=== PATIENT | male | born 1975 ===

== ENCOUNTER 2016-12-31 10:48 | Emergency (ER) | payer OTHER ==
[2016-12-31 11:08] VITALS: RESP 18; TEMP 99.8; O2SAT 98
[2016-12-31] MEDS ORDERED: Naproxen 550 mg Tab PO STA (11:58)
[2016-12-31] MEDS ORDERED: Naproxen 550 mg Tab PO ONE (12:08)
--- NOTE | 2016-12-31 12:51 | C.PDOC ---
History Of Present Illness Pt c/o rectal pain. Time Seen by Provider: 12/31/16 11:41 Chief Complaint (Nursing): GI Problem History Per: Patient Onset/Duration Of Symptoms: Days (1) Current Symptoms Are (Timing): Still Present Severity: Moderate Location Of Pain/Discomfort: Other (Rectum) Quality Of Discomfort: "Pain" Associated Symptoms: Constipation Last Bowel Movement: Today Additional History Per: Prior Records Past Medical History Reviewed: Historical Data, Nursing Documentation, Vital Signs Vital Signs: Last Vital Signs Temp 99.8 F H 12/31/16 11:05 Pulse 97 H 12/31/16 11:05 Resp 18 12/31/16 11:05 BP 164/95 H 12/31/16 11:05 Pulse Ox 98 12/31/16 11:05 - Medical History PMH: No Chronic Diseases Surgical History: No Surg Hx Family History: States: Unknown Family Hx - Social History Hx Alcohol Use: Yes Hx Substance Use: No - Immunization History Hx Tetanus Toxoid Vaccination: No Hx Influenza Vaccination: No Hx Pneumococcal Vaccination: No Review Of Systems Except As Marked, All Systems Reviewed And Found Negative. Constitutional: Negative for: Fever, Weakness Cardiovascular: Negative for: Chest Pain Respiratory: Negative for: Shortness of Breath Gastrointestinal: Positive for: Constipation, Rectal Pain. Negative for: Vomiting, Abdominal Pain, Diarrhea, Melena, Hematochezia, Hematemesis Genitourinary: Negative for: Dysuria Musculoskeletal: Negative for: Neck Pain, Back Pain Skin: Negative for: Rash Neurological: Negative for: Weakness, Numbness, Seizures, Altered Mental Status Physical Exam - Physical Exam Appears: Non-toxic, No Acute Distress Skin: Normal Color, Warm, Dry Head: Atraumatic, Normacephalic Eye(s): bilateral: Normal Inspection, PERRL, EOMI Neck: Normal ROM, Supple Cardiovascular: Rhythm Regular Respiratory: Normal Breath Sounds, No Accessory Muscle Use Gastrointestinal/Abdominal: Soft, No Tenderness Rectal: Rectal Tone (wnl), Hemorrhoids (?), Tenderness (painful rectal exam), Other (Skin tags. No stool in rectal vault.) Back: No CVA Tenderness Extremity: Normal ROM Neurological/Psych: Oriented x3, Normal Motor, Normal Sensation ED Course And Treatment O2 Sat by Pulse Oximetry: 98 Pulse Ox Interpretation: Normal Reassessment Condition: Improved Disposition Counseled Patient/Family Regarding: Diagnosis, Need For Followup, Rx Given - Disposition Referrals: [facility] at [facility] [Outside] Disposition: HOME/ ROUTINE Disposition Time: 12:51 Condition: STABLE Additional Instructions: Follow up in the clinic for further evaluation and treatment. Return to the ER if you develop fever, abdominal pain, worsening of symptoms or if you have any other concerns. Prescriptions: Docusate [Colace] 100 mg PO BID #30 cap Phenylephrine [Keyla-Med NF] 1 supp RC QID PRN #30 sup PRN Reason: Hemorrhoids Instructions: Rectal Pain (ED) Forms: [employer] ([place]) Print Language: DIVEHI - Clinical Impression Clinical Impression: Rectal pain
[2016-12-31 12:58] VITALS: BP 128/78; PULSE 85
== END 2016-12-31 12:58 | disposition home or self-care (01) ==
LOC: C.ER 10:48
DX: K62.89 Other specified diseases of anus and rectum (principal)

== ENCOUNTER 2017-01-03 10:47 | Inpatient (IN) | payer OTHER, SELFPAY ==
[2017-01-03 11:02] VITALS: BMI 41.6
[2017-01-03 13:04] LABS: BASO # 0.1 K/uL (0.0-0.2); BASO % 0.7 % (0.0-2.0); EOS # 0.1 K/uL (0.0-0.7); EOS % 1.3 % (0.0-4.0); HEMATOCRIT 46.5 % (35.0-51.0); LYMPH # 1.6 K/uL (1.0-4.3); LYMPH % 21.4 % (20.0-40.0); MEAN CELL VOLUME 92.2 fL (80.0-94.0); MEAN CORPUSCULAR HEMOGLOBIN 31.4 pg (27.0-31.0); MONO # 0.8 K/uL (0.0-0.8); MONO % 10.6 % (0.0-10.0); RED CELL DISTRIBUTION WIDTH 12.4 % (11.5-14.5); WHITE BLOOD COUNT 7.6 K/uL (4.8-10.8)
[2017-01-03 13:16] LABS: CHLORIDE 96 mmol/L (98-107); POTASSIUM 4.7 mmol/L (3.6-5.2); SODIUM 136 mmol/L (132-148)
[2017-01-03 13:18] LABS: AST/SGOT 177 U/L (17-59); CARBON DIOXIDE 26 mmol/L (22-30); GFR AFRICAN-AMERICAN > 60
[2017-01-03 13:19] LABS: ALB/GLOB RATIO 0.9 (1.0-2.1); ALKALINE PHOSPHATASE 113 U/L (38-126); ALT/SGPT 183 U/L (21-72); BLOOD UREA NITROGEN 11 mg/dL (9-20); CALCIUM 9.2 mg/dl (8.6-10.4); GLUCOSE,RANDOM 252 mg/dL (75-110); TOTAL PROTEIN 8.1 g/dL (6.3-8.3)
[2017-01-03] MEDS ORDERED: Piperacillin/Tazobact 3.375 gm 100 ML IVPB STA (14:31)
[2017-01-03] MEDS ORDERED: Sodium Chloride 0.9% 1,000 ML IV ONE (14:34)
--- NOTE | 2017-01-03 14:48 | RAD ---
HISTORY: pre-op COMPARISON: No prior. FINDINGS: LUNGS: No active pulmonary disease. PLEURA: No significant pleural effusion identified, no pneumothorax apparent. CARDIOVASCULAR: Normal. OSSEOUS STRUCTURES: No significant abnormalities. VISUALIZED UPPER ABDOMEN: Normal. OTHER FINDINGS: None. IMPRESSION: No active disease.
[2017-01-03 15:05] LABS: INR 1.2
[2017-01-03] MEDS ORDERED: Iodixanol 320 MG/ML 100 ML BOTTLE IV ONE (15:11)
[2017-01-03] MEDS ORDERED: Sodium Chloride 0.9% 1,000 ML ONE (15:11)
--- NOTE | 2017-01-03 15:22 | CP.PCM.CON ---
History of Present Illness - History of Present Illness History of Present Illness: SURGERY CONSULT NOTE FOR DR. NAVARRETE 41M presents with pain in the buttock that began 5 days ago as per patient. Patient states he felt a bump that has gotten much bigger and have been draining purulent material. Patient denies fevers, chills, nausea, vomiting, change in bowel function. He has never had this before PMH: denies PSH: denies Social: denies tobacco use, admits to alcohol uses, denies illicit drugs Allergies: denies Past Patient History - Infectious Disease Hx of Infectious Diseases: None - Past Social History Smoking Status: Never Smoked - PSYCHIATRIC Hx Substance Use: No - SURGICAL HISTORY Hx Surgeries: No - ANESTHESIA Hx Anesthesia: No Meds Allergies/Adverse Reactions: Allergies Allergy/AdvReac Type Severity Reaction Status Date / Time No Known Allergies Allergy Verified 01/03/17 11:00 - Medications Medications: Current Medications Sodium Chloride (Sodium Chloride 0.9%) 1,000 mls @ 250 mls/hr IV .Q4H ONE Stop: 01/03/17 18:33 Last Admin: 01/03/17 15:09 Dose: 250 mls/hr Physical Exam - Constitutional Appears: Non-toxic, No Acute Distress, Other (uncomfortable) - Head Exam Head Exam: ATRAUMATIC - Eye Exam Eye Exam: EOMI, PERRL - ENT Exam ENT Exam: Mucous Membranes Moist - Respiratory Exam Respiratory Exam: Clear to Auscultation Bilateral, NORMAL BREATHING PATTERN - Cardiovascular Exam Cardiovascular Exam: REGULAR RHYTHM, +S1, +S2 - GI/Abdominal Exam GI & Abdominal Exam: Soft. absent: Distended, Firm, Guarding, Rebound, Rigid, Tenderness - Rectal Exam Rectal Exam: Hemorrhoids Additional comments: left side perianal abscess, draining some purulent material 10cm region of tenderness around the drainage site. - Extremities Exam Extremities exam: Negative for: pedal edema, tenderness - Neurological Exam Neurological exam: Alert, Oriented x3 - Psychiatric Exam Psychiatric exam: Normal Affect, Normal Mood - Skin Skin Exam: Dry, Intact, Normal Color, Warm Results - Vital Signs Recent Vital Signs: Last Vital Signs Temp 97.8 F 01/03/17 11:02 Pulse 86 01/03/17 11:02 Resp 18 01/03/17 11:02 BP 138/106 H 01/03/17 11:02 Pulse Ox 98 01/03/17 11:02 - Labs Result Diagrams: 01/03/17 12:58 01/03/17 12:58 Labs: Laboratory Results - last 24 hr 01/03/17 01/03/17 01/03/17 12:58 12:58 14:44 WBC 7.6 RBC 5.04 Hgb 15.8 Hct 46.5 MCV 92.2 MCH 31.4 H MCHC 34.0 RDW 12.4 Plt Count 249 MPV 8.0 Neut % (Auto) 66.0 Lymph % (Auto) 21.4 [place] % (Auto) 10.6 H Eos % (Auto) 1.3 Baso % (Auto) 0.7 Neut # 5.0 Lymph # 1.6 [place] # 0.8 Eos # 0.1 Baso # 0.1 PT 13.5 H INR 1.2 APTT 24 Sodium 136 Potassium 4.7 Chloride 96 L Carbon Dioxide 26 Anion Gap 19 BUN 11 Creatinine 0.5 L Est GFR ( Amer) > 60 Est GFR (Non-Af Amer) > 60 Random Glucose 252 H Calcium 9.2 Total Bilirubin 1.0 AST 177 H ALT 183 H Alkaline Phosphatase 113 Total Protein 8.1 Albumin 3.9 Globulin 4.2 H Albumin/Globulin Ratio 0.9 L Assessment & Plan - Assessment and Plan (Free Text) Assessment: 41M with perianal abscess Plan: - NPO, IVF, Antibiotics - follow up CT scan - Patient needs incision and drainage of abscess Samuel Mcqueen, PGY2
[2017-01-03] MEDS ORDERED: Piperacillin/Tazobact 3.375 gm 100 ML IVPB ONE (15:38)
--- NOTE | 2017-01-03 15:43 | C.PDOC ---
History Of Present Illness 41 yr old male presents to the ER for evaluation of swelling in the anal area for the past 1-2 months. Patient reports of pain with bowel movement but drainage from the area. Patient reports of trauma to the area, however can not elaborate. Also states he has not sought out any medical help until now. Patient denies fever, chills, nausea, vomiting, abdominal pain, diarrhea, blood with BM, back pain, weakness or numbness. Time Seen by Provider: 01/03/17 11:11 Chief Complaint (Nursing): Abnormal Skin Integrity History Per: Patient History/Exam Limitations: no limitations Onset/Duration Of Symptoms: Persistent (1-2 months) Past Medical History Reviewed: Historical Data, Nursing Documentation, Vital Signs Vital Signs: Last Vital Signs Temp 98.6 F 01/03/17 16:00 Pulse 74 01/03/17 16:00 Resp 18 01/03/17 16:00 BP 155/100 H 01/03/17 16:00 Pulse Ox 98 01/03/17 16:43 Family History: States: No Known Family Hx - Social History Hx Alcohol Use: Yes Hx Substance Use: No - Immunization History Hx Tetanus Toxoid Vaccination: No Hx Influenza Vaccination: No Hx Pneumococcal Vaccination: No Review Of Systems Except As Marked, All Systems Reviewed And Found Negative. Constitutional: Negative for: Fever, Chills Gastrointestinal: Positive for: Other ((+) Area of swelling in the anal area.). Negative for: Nausea, Vomiting, Abdominal Pain, Diarrhea Neurological: Negative for: Weakness, Numbness Physical Exam - Physical Exam Appears: Non-toxic, No Acute Distress Skin: Warm, Dry, No Rash, Other ((+) Anus - At the 3 oclock position, proximity 2cm in diameter area of fluctuance/induration. Very tender to touch. No dischagre noted.) Head: Atraumatic, Normacephalic Eye(s): bilateral: Normal Inspection, PERRL, EOMI Oral Mucosa: Moist Chest: Symmetrical, No Tenderness Cardiovascular: Rhythm Regular, No Murmur Respiratory: Normal Breath Sounds, No Rales, No Rhonchi, No Stridor, No Wheezing Extremity: Normal ROM, No Swelling Neurological/Psych: Oriented x3, Normal Speech, Normal Motor ED Course And Treatment - Laboratory Results Result Diagrams: 01/03/17 12:58 01/03/17 12:58 O2 Sat by Pulse Oximetry: 98 (RA ) Pulse Ox Interpretation: Normal - Radiology CXR: Viewed By Me, Read By Radiologist CXR Interpretation: Yes: No Acute Disease - CT Scan/US CT - Abd & Pelvis Other Rad Studies (CT/US): Read By Radiologist, Radiology Report Reviewed CT/US Interpretation: PROCEDURE: CT Abdomen and Pelvis with contrast. HISTORY : evaluation of rectal/anal abscess. COMPARISON: None. TECHNIQUE: Contrast dose: 100 mL Visipaque 320. Radiation dose: Total exam DLP = 897.83 mGy-cm. This CT exam was performed using one or more of the following dose reduction techniques: Automated exposure control, adjustment of the mA and/or kV according to patient size, and/or use of iterative reconstruction technique. FINDINGS: LOWER THORAX: Minimal linear scar/ atelectasis in both lower lobes. LIVER: Normal size and contour. Diffuse fatty infiltration. No focal mass. No biliary dilatation. GALLBLADDER AND BILE DUCTS: Unremarkable. PANCREAS: Unremarkable. No gross lesion or ductal dilatation. SPLEEN: Unremarkable. ADRENALS: Unremarkable. No mass. KIDNEYS AND URETERS: Unremarkable. No hydronephrosis. No solid mass. VASCULATURE: Unremarkable. No aortic aneurysm. BOWEL: Unremarkable. No obstruction. No gross mural thickening. APPENDIX: Normal appendix. PERITONEUM: Unremarkable. No free fluid. No free air. LYMPH NODES: Unremarkable. No enlarged lymph nodes. BLADDER: Unremarkable. REPRODUCTIVE: Normal prostate. BONES: No acute fracture. OTHER FINDINGS: Posterior to the anus, extending along the left perineum, there is cutaneous thickening with increased attenuation of the subcutaneous fat, consistent with cellulitis. . There is a small irregularly-shaped low-density collection, approximately 0.8 x 2.1 x 2.3 cm. There is faint peripheral enhancement consistent with a small abscess. IMPRESSION: 2.3 cm perianal abscess with adjacent cellulitis, extending posteriorly from the anus along the left superior perineum. Medical Decision Making Medical Decision Making: PLAN: * CT - Abdomen & Pelvis * CXR * EKG * CBC * CMP * Zoysn IVPB * Sodium Chloride IV Disposition - Disposition Disposition: HOSPITALIZED Disposition Time: 15:30 Condition: STABLE - Clinical Impression Clinical Impression: Perirectal abscess - Scribe Statement The provider has reviewed the documentation as recorded by the Nisreen Puckett Provider Attestation: All medical record entries made by the Scribe were at my direction and personally dictated by me. I have reviewed the chart and agree that the record accurately reflects my personal performance of the history, physical exam, medical decision making, and the department course for this patient. I have also personally directed, reviewed, and agree with the discharge instructions and disposition.
--- NOTE | 2017-01-03 15:45 | CP.PCM.HP ---
History of Present Illness - History of Present Illness History of Present Illness: SURGERY CONSULT NOTE FOR DR. NAVARRETE 41M presents with pain in the buttock that began 5 days ago as per patient. Patient states he felt a bump that has gotten much bigger and have been draining purulent material. Patient denies fevers, chills, nausea, vomiting, change in bowel function. He has never had this before PMH: denies PSH: denies Social: denies tobacco use, admits to alcohol uses, denies illicit drugs Allergies: denies Present on Admission - Present on Admission Any Indicators Present on Admission: No Past Patient History - Infectious Disease Hx of Infectious Diseases: None - Past Social History Smoking Status: Never Smoked - PSYCHIATRIC Hx Substance Use: No - SURGICAL HISTORY Hx Surgeries: No - ANESTHESIA Hx Anesthesia: No Meds Allergies/Adverse Reactions: Allergies Allergy/AdvReac Type Severity Reaction Status Date / Time No Known Allergies Allergy Verified 01/03/17 11:00 Physical Exam - Constitutional Appears: Non-toxic, No Acute Distress - Head Exam Head Exam: ATRAUMATIC - Eye Exam Eye Exam: EOMI, PERRL - ENT Exam ENT Exam: Mucous Membranes Moist - Respiratory Exam Respiratory Exam: Clear to Auscultation Bilateral, NORMAL BREATHING PATTERN - Cardiovascular Exam Cardiovascular Exam: REGULAR RHYTHM, +S1, +S2 - GI/Abdominal Exam GI & Abdominal Exam: Soft. absent: Distended, Firm, Guarding, Rebound, Rigid, Tenderness - Rectal Exam Rectal Exam: Hemorrhoids Additional comments: left side perianal abscess, draining some purulent material 10cm region of tenderness around the drainage site. - Extremities Exam Extremities exam: Negative for: pedal edema, tenderness - Neurological Exam Neurological exam: Alert, Oriented x3 - Psychiatric Exam Psychiatric exam: Normal Affect, Normal Mood - Skin Skin Exam: Dry, Intact, Normal Color, Warm Results - Vital Signs Recent Vital Signs: Last Vital Signs Temp 97.8 F 01/03/17 11:02 Pulse 86 01/03/17 11:02 Resp 18 01/03/17 11:02 BP 138/106 H 01/03/17 11:02 Pulse Ox 98 01/03/17 15:43 - Labs Result Diagrams: 01/03/17 12:58 01/03/17 12:58 Labs: Laboratory Results - last 24 hr 01/03/17 01/03/17 01/03/17 12:58 12:58 14:44 WBC 7.6 RBC 5.04 Hgb 15.8 Hct 46.5 MCV 92.2 MCH 31.4 H MCHC 34.0 RDW 12.4 Plt Count 249 MPV 8.0 Neut % (Auto) 66.0 Lymph % (Auto) 21.4 [place] % (Auto) 10.6 H Eos % (Auto) 1.3 Baso % (Auto) 0.7 Neut # 5.0 Lymph # 1.6 [place] # 0.8 Eos # 0.1 Baso # 0.1 PT 13.5 H INR 1.2 APTT 24 Sodium 136 Potassium 4.7 Chloride 96 L Carbon Dioxide 26 Anion Gap 19 BUN 11 Creatinine 0.5 L Est GFR ( Amer) > 60 Est GFR (Non-Af Amer) > 60 Random Glucose 252 H Calcium 9.2 Total Bilirubin 1.0 AST 177 H ALT 183 H Alkaline Phosphatase 113 Total Protein 8.1 Albumin 3.9 Globulin 4.2 H Albumin/Globulin Ratio 0.9 L Blood Type 01/03/17 14:44 WBC RBC Hgb Hct MCV MCH MCHC RDW Plt Count MPV Neut % (Auto) Lymph % (Auto) [place] % (Auto) Eos % (Auto) Baso % (Auto) Neut # Lymph # [place] # Eos # Baso # PT INR APTT Sodium Potassium Chloride Carbon Dioxide Anion Gap BUN Creatinine Est GFR ( Amer) Est GFR (Non-Af Amer) Random Glucose Calcium Total Bilirubin AST ALT Alkaline Phosphatase Total Protein Albumin Globulin Albumin/Globulin Ratio Blood Type A POSITIVE Assessment & Plan - Assessment and Plan (Free Text) Assessment: 41M with josefina-rectal abscess Plan: - NPO, IVF, Antibiotics - f/u CT results - I&D tonight in the OR Discussed with Dr. Emmy Mcqueen, PGY2
--- NOTE | 2017-01-03 15:57 | CT ---
PROCEDURE: CT Abdomen and Pelvis with contrast HISTORY: evaluation of rectal/anal abscess COMPARISON: None. TECHNIQUE: Contrast dose: 100 mL Visipaque 320 Radiation dose: Total exam DLP = 897.83 mGy-cm. This CT exam was performed using one or more of the following dose reduction techniques: Automated exposure control, adjustment of the mA and/or kV according to patient size, and/or use of iterative reconstruction technique. FINDINGS: LOWER THORAX: Minimal linear scar/ atelectasis in both lower lobes. LIVER: Normal size and contour. Diffuse fatty infiltration. No focal mass. No biliary dilatation. GALLBLADDER AND BILE DUCTS: Unremarkable. PANCREAS: Unremarkable. No gross lesion or ductal dilatation. SPLEEN: Unremarkable. ADRENALS: Unremarkable. No mass. KIDNEYS AND URETERS: Unremarkable. No hydronephrosis. No solid mass. VASCULATURE: Unremarkable. No aortic aneurysm. BOWEL: Unremarkable. No obstruction. No gross mural thickening. APPENDIX: Normal appendix. PERITONEUM: Unremarkable. No free fluid. No free air. LYMPH NODES: Unremarkable. No enlarged lymph nodes. BLADDER: Unremarkable. REPRODUCTIVE: Normal prostate BONES: No acute fracture. OTHER FINDINGS: Posterior to the anus, extending along the left perineum, there is cutaneous thickening with increased attenuation of the subcutaneous fat, consistent with cellulitis. . There is a small irregularly-shaped low-density collection, approximately 0.8 x 2.1 x 2.3 cm. There is faint peripheral enhancement consistent with a small abscess. IMPRESSION: 2.3 cm perianal abscess with adjacent cellulitis, extending posteriorly from the anus along the left superior perineum.
[2017-01-03] MEDS ORDERED: Propofol 10 mg/ml Inj (20 ML) ONE (17:09)
[2017-01-03] MEDS ORDERED: Lactated Ringer's 1,000 ML IV ONE (17:15)
[2017-01-03] MEDS ORDERED: ceFAZolin IV 2 gm in Dextrose 1 GM/50 ML BAG IVPB ONE (17:16)
[2017-01-03] MEDS ORDERED: HYDROmorphone 0.5 mg/0.5 ml ISec IVP PRN (17:44)
[2017-01-03] MEDS ORDERED: Morphine 4 MG/ML VIAL IVP PRN (17:44)
--- NOTE | 2017-01-03 17:44 | PCM.SURG1 ---
Surgeon's Initial Post Op Note - Surgeon's Notes Surgeon: Emmy [employer] Specialist: MALLY Mcqueen Pre-Operative Diagnosis: Perirectal abscess Operative Findings: abscess Post-Operative Diagnosis: same Operation Performed: incision and drainage of perirectal abscess Specimen/Specimens Removed: pus Estimated Blood Loss: EBL {In ML}: 25 Date of Surgery/Procedure: 01/03/17 Time of Surgery/Procedure: 17:15
[2017-01-03] MEDS ORDERED: Piperacillin/Tazobact 3.375 GM in Sodium Chloride 100 ML IVPB SCH (17:45)
[2017-01-03 20:29] VITALS: RESP 20
[2017-01-04 00:13] VITALS: O2SAT 97
[2017-01-04] MEDS: Piperacillin/Tazobact 3.375 GM in Sodium Chloride 100 ML IVPB SCH ×2 (01:19→09:39)
--- NOTE | 2017-01-04 04:09 | OP ---
PROCEDURE DATE: 01/03/2017 PREOPERATIVE DIAGNOSIS: Perianal abscess. POSTOPERATIVE DIAGNOSIS: Perianal abscess. PROCEDURE PERFORMED: Incision and drainage packing with iodoform gauze. FINDINGS: There is a large swelling noted on the left perianal area. There is a small opening it is draining some purulent material. There is surrounding erythema, induration and cellulitis. DESCRIPTION OF PROCEDURE: Under general anesthesia, the patient was prepared and draped in the usual sterile fashion. The patient is exaggerated lithotomy position. The patient was draped and incision was made about 1-1/2 inches long on the most fluctuant portion of the swelling, large amount of purulent material was then extracted. The loculations were broken with the finger. Irrigation was done with saline solution and then the cavity packed with iodoform gauze 1 inch size. Dressing is applied. The procedure terminated. No complications. Germain Booth MD
--- NOTE | 2017-01-04 11:00 | CP.PCM.DIS ---
Provider - Provider Date of Admission: 01/03/17 15:46 Attending physician: Germain Booth MD Time Spent in preparation of Discharge (in minutes): 35 Diagnosis - Discharge Diagnosis (1) Perianal abscess Status: Acute Hospital Course - Lab Results Lab Results: Most Recent Lab Values WBC 7.6 K/uL (4.8-10.8) 01/03/17 12:58 RBC 5.04 Mil/uL (4.40-5.90) 01/03/17 12:58 Hgb 15.8 g/dL (12.0-18.0) 01/03/17 12:58 Hct 46.5 % (35.0-51.0) 01/03/17 12:58 MCV 92.2 fL (80.0-94.0) 01/03/17 12:58 MCH 31.4 pg (27.0-31.0) H 01/03/17 12:58 MCHC 34.0 g/dL (33.0-37.0) 01/03/17 12:58 RDW 12.4 % (11.5-14.5) 01/03/17 12:58 Plt Count 249 K/uL (130-400) 01/03/17 12:58 MPV 8.0 fL (7.2-11.7) 01/03/17 12:58 Neut % (Auto) 66.0 % (50.0-75.0) 01/03/17 12:58 Lymph % (Auto) 21.4 % (20.0-40.0) 01/03/17 12:58 [place] % (Auto) 10.6 % (0.0-10.0) H 01/03/17 12:58 Eos % (Auto) 1.3 % (0.0-4.0) 01/03/17 12:58 Baso % (Auto) 0.7 % (0.0-2.0) 01/03/17 12:58 Neut # 5.0 K/uL (1.8-7.0) 01/03/17 12:58 Lymph # 1.6 K/uL (1.0-4.3) 01/03/17 12:58 [place] # 0.8 K/uL (0.0-0.8) 01/03/17 12:58 Eos # 0.1 K/uL (0.0-0.7) 01/03/17 12:58 Baso # 0.1 K/uL (0.0-0.2) 01/03/17 12:58 PT 13.5 SECONDS (9.7-12.2) H 01/03/17 14:44 INR 1.2 01/03/17 14:44 APTT 24 SECONDS (21-34) 01/03/17 14:44 Sodium 136 mmol/L (132-148) 01/03/17 12:58 Potassium 4.7 mmol/L (3.6-5.2) 01/03/17 12:58 Chloride 96 mmol/L (98-107) L 01/03/17 12:58 Carbon Dioxide 26 mmol/L (22-30) 01/03/17 12:58 Anion Gap 19 (10-20) 01/03/17 12:58 BUN 11 mg/dL (9-20) 01/03/17 12:58 Creatinine 0.5 MG/DL (0.8-1.5) L 01/03/17 12:58 Est GFR ( Amer) > 60 01/03/17 12:58 Est GFR (Non-Af Amer) > 60 01/03/17 12:58 Random Glucose 252 mg/dL (75-110) H 01/03/17 12:58 Calcium 9.2 mg/dl (8.6-10.4) 01/03/17 12:58 Total Bilirubin 1.0 mg/dL (0.2-1.3) 01/03/17 12:58 AST 177 U/L (17-59) H 01/03/17 12:58 ALT 183 U/L (21-72) H 01/03/17 12:58 Alkaline Phosphatase 113 U/L (38-126) 01/03/17 12:58 Total Protein 8.1 g/dL (6.3-8.3) 01/03/17 12:58 Albumin 3.9 g/dL (3.5-5.0) 01/03/17 12:58 Globulin 4.2 gm/dL (2.2-3.9) H 01/03/17 12:58 Albumin/Globulin Ratio 0.9 (1.0-2.1) L 01/03/17 12:58 Blood Type A POSITIVE 01/03/17 14:44 Antibody Screen Negative 01/03/17 14:44 - Hospital Course Hospital Course: 41M presents with pain in the buttock that began 5 days ago as per patient. Patient states he felt a bump that has gotten much bigger and have been draining purulent material. Patient denies fevers, chills, nausea, vomiting, change in bowel function. He has never had this before. Patient was made NPO, started on IV antibiotics and later went for I&D of perirectal abscess. Patient tolerated procedure well and dressing was plced. Next morning, dressing was changed. Patient medically stable for discharge by Dr. Booth. Patient to take oral antibiotics as prescirbed. Change dressin g as needed. Follow up on 01/[address] Booth. For any issues, please call Dr. Booth. Discharge Exam - Head Exam Head Exam: ATRAUMATIC, NORMOCEPHALIC - Eye Exam Eye Exam: Normal appearance - ENT Exam ENT Exam: Mucous Membranes Moist - Respiratory Exam Respiratory Exam: NORMAL BREATHING PATTERN - Cardiovascular Exam Cardiovascular Exam: REGULAR RHYTHM - GI/Abdominal Exam GI & Abdominal Exam: Soft. absent: Tenderness - Neurological Exam Neurological exam: Alert, CN II-XII Intact, Normal Gait, Oriented x3 - Psychiatric Exam Psychiatric exam: Normal Affect, Normal Mood - Skin Skin Exam: Dry, Warm Discharge Plan - Follow Up Plan Condition: GOOD Disposition: HOME/ ROUTINE Instructions: Acute Wound Care (GEN), Rectal Abscess (GEN) Additional Instructions: 1) Follow up with Dr. Booth on Friday 2)Packing will be removed on follow up 3) Can shower, but do not bath Paciente estable para dealta a la casa. Porfavor llamar para hacer devin con Dr Booth para el Bhargav. En tracey devin te van a cambiar la ceda puesta dentro de la herida. En la casa debes de cambiar la gaza cada ves que se ensucie, especialmente despues de usar el pipe. El paciente se puede duchar isabelle banarse sentado en banera. Referrals: Germain Booth MD [Staff Provider] -
[2017-01-04 12:39] VITALS: BP 142/85; PULSE 89; TEMP 98.2
[2017-01-06] MEDS ORDERED: Pneumococcal 23-Valent Vaccine IM ONE (10:00)
--- NOTE | 2017-01-07 19:44 | CARD ---
APPROVED REPORT EKG Measurement Heart [id number] CT [id number] <Conclusion> Normal sinus rhythm Normal ECG
== END 2017-01-04 12:15 | disposition home or self-care (01) | DRG 158 ==
LOC: C.ER 10:47 → C.9E 15:46 → C.5T 17:01
PROVIDERS: ADMIT Surgery; ATTEND Surgery
PROC: 0D9Q0ZZ Drainage of Anus, Open Approach (ICD-10-PCS; principal; 2017-01-03 17:22)
DX: K61.2 Anorectal abscess (principal)